=== PATIENT | male | born 1950 | race Caucasian/White ===

== ENCOUNTER 2017-07-28 07:47 | Day surgery (SDC) | payer MEDICARE ==
[~2017-07-28] VITALS: Ht 154.9 cm; Wt 70.3 kg
[2017-07-28] MEDS ORDERED: LIDOCAINE 2% 100 MG/5 ML UJET TP ONE (09:31)
== END 2017-07-28 10:25 | disposition home or self-care (01) ==
LOC: MDS 07:47 → MMU 07:53 → UNDOADMIN 07:53 → MMU 07:58 → MDS 10:25
PROVIDERS: ATTEND Internal Medicine Gastroenterology
DX: Z12.11 Encounter for screening for malignant neoplasm of colon (principal); E66.09 Other obesity due to excess calories; K63.5 Polyp of colon